=== PATIENT | male | born 1940 | race Caucasian/White ===

== ENCOUNTER 2016-12-16 09:18 | Day surgery (SDC) | payer MEDICARE, BC ==
[~2016-12-16] VITALS: Ht 172.7 cm
--- NOTE | 2016-12-18 08:18 | OR ---
ADMIT: 12/16/2016 RM/LOC: [facility] MR#: [id number] [address] RAFAEL MUNIZ [address] [place] [address] Operative/Delivery Room Report SEX: M AGE: 76 : 1940 SURGERY DATE: 12/16/2016 SURGEON: Therese Hsieh MD FITNESS CONSULTANT: None. PREOPERATIVE DIAGNOSES: 1. Lumbar spondylosis. 2. Lumbago. 3. Failed back surgery syndrome. POSTOPERATIVE DIAGNOSES: 1. Lumbar spondylosis. 2. Lumbago. 3. Failed back surgery syndrome. PROCEDURE PERFORMED: Bilateral lumbar medial branch block at L3, L4, L5, and S1 levels. INDICATION FOR THE PROCEDURE: The patient is a pleasant gentleman with history of chronic low back pain secondary to above mentioned diagnoses, come here for planned lumbar medial branch block. ANESTHESIA: Local without sedation. ESTIMATED BLOOD LOSS: Zero. COMPLICATIONS: None immediately evident. DESCRIPTION OF THE PROCEDURE: After the patient was seen in the preoperative area, vital signs were taken. Prior to the procedure, the risks, benefits, and alternative therapies were discussed at length. The patient's consent was obtained and updated. The patient was taken to the fluoroscopy suite and placed on the fluoroscopy table in a prone position. Pressure points were padded to comfort. Monitors were applied and a timeout performed. The lumbosacral area was prepped and draped sterilely using ChloraPrep. C-arm fluoroscopy was then brought in to identify the junction of the pedicular and transverse process. Then lidocaine 1% was applied; approximately 1 mL was used to anesthetize the skin and underlying subcutaneous tissue at bilateral L3, L4, L5 and S1 levels. At each level, a 3.5 inch 22-gauge spinal needle was used. The needle was then advanced to make contact with the superior articular facet at each level, and then needle was placed between the junction ADMIT: 12/16/2016 RM/LOC: [facility] MR#: [id number] [address] RAFAEL MUNIZ [address] [place] [address] Operative/Delivery Room Report SEX: M AGE: 76 : 1940 of the superior articular facet and the transfer process. Then the patient received 0.5 mL of 0.25% Marcaine with approximately 40 mg of Depo-Medrol at each level. The patient had reproduction of typical pain at each level. Then we moved on to the left side; we did the same procedure. The patient tolerated the procedure well. The patient was brought to the PACU where he recovered nicely without any complication. PLAN: The patient was examined after 20 minutes and had 40% reduction of pain. Range of motion, mainly extension, went from 10 degrees of extension to 20 degrees of extension. Discharge instructions were given. Followup as scheduled. The patient was discharged with a cryogenic transport driver. Therese Hsieh MD/ allison JOB #: [id number] CC: Therese Hsieh MD, Attending Physician Jaspreet Aguillon MD, Family Physician
== END 2016-12-16 10:47 | disposition home or self-care (01) ==
LOC: SSS 09:18
PROC: 3E0T3BZ Introduction of Anesthetic Agent into Peripheral Nerves and Plexi, Percutaneous Approach (ICD-10-PCS; principal; 2016-12-16)
PROC: 3E0T33Z Introduction of Anti-inflammatory into Peripheral Nerves and Plexi, Percutaneous Approach (ICD-10-PCS; principal; 2016-12-16)
PROC: BR16YZZ Fluoroscopy of Lumbar Facet Joint(s) using Other Contrast (ICD-10-PCS; principal; 2016-12-16)
DX: G89.29 Other chronic pain (principal); M47.816 Spondylosis without myelopathy or radiculopathy, lumbar region; M51.37 Other intervertebral disc degeneration, lumbosacral region; M48.06 Spinal stenosis, lumbar region; M96.1 Postlaminectomy syndrome, not elsewhere classified; G56.00 Carpal tunnel syndrome, unspecified upper limb; M79.1 Myalgia; Z79.899 Other long term (current) drug therapy; Z79.82 Long term (current) use of aspirin; I10 Essential (primary) hypertension; I25.10 Atherosclerotic heart disease of native coronary artery without angina pectoris; E11.9 Type 2 diabetes mellitus without complications; Z90.49 Acquired absence of other specified parts of digestive tract; Z88.8 Allergy status to other drugs, medicaments and biological substances; Z88.6 Allergy status to analgesic agent; Z98.890 Other specified postprocedural states

== ENCOUNTER 2017-01-06 09:47 | Day surgery (SDC) | payer MEDICARE, BC ==
[~2017-01-06] VITALS: Ht 172.7 cm
--- NOTE | 2017-01-08 08:34 | OR ---
ADMIT: 01/06/2017 RM/LOC: [facility] MR#: [id number] [address] RAFAEL MUNIZ [address] [place], [place] [address] Operative/Delivery Room Report SEX: M AGE: 76 : 1940 SURGERY DATE: 01/06/2017 SURGEON: Therese Hsieh MD COMMISSIONING SPECIALIST: None. PREPROCEDURE DIAGNOSES: 1. Lumbar spondylosis. 2. Lumbago. POSTPROCEDURE DIAGNOSES: 1. Lumbar spondylosis. 2. Lumbago. PROCEDURE PERFORMED: Right L3, L4, L5, and S1 radiofrequency thermocoagulation. INDICATIONS FOR PROCEDURE: The patient is a pleasant gentleman with history of chronic low back pain secondary to above mentioned diagnoses, comes here for planned right-sided lumbar radiofrequency thermocoagulation. ANESTHESIA: Local without sedation. ESTIMATED BLOOD LOSS: Zero. COMPLICATIONS: None immediately evident. DESCRIPTION OF THE PROCEDURE: After the patient was seen in the preoperative area, vitals signs were taken. Prior to the procedure, the risks, benefits, and alternative therapies were discussed at length. Patient consent was obtained and updated. The patient was taken to the fluoroscopy suite and placed on the fluoroscopy table in the prone position. Pressure points were padded to comfort, monitors applied, and a timeout performed. ADMIT: 01/06/2017 RM/LOC: [facility] MR#: [id number] [address] JESSICA MUNIZMATIAS Gagnon [address] [place], [place] [id number] Operative/Delivery Room Report SEX: M AGE: 76 : 1940 Fluoroscopy was brought in to identify the transverse process of the right- sided L3, L4, L5, and S1. To anesthetize the skin, a spinal cannula was placed near the junction of pedicle and transverse process. Once we obtained appropriate parameters for sensory motor testing, we proceeded with radiofrequency thermocoagulation at each level, which consisted of 80 degrees for 90 seconds. The patient tolerated the procedure well. The patient did not feel any stimulation below his knees. The patient was discharged to post anesthesia care without any immediate complications. PLAN: Discharge instructions were given, followup scheduled. The patient was discharged home with a hazmat tanker driver. Therese Hsieh MD/ allison JOB #: [id number] CC: Therese Hsieh MD, Attending Physician Jaspreet Aguillon MD, Family Physician
== END 2017-01-06 11:30 | disposition home or self-care (01) ==
LOC: SSS 09:47
PROC: 3E0T3TZ Introduction of Destructive Agent into Peripheral Nerves and Plexi, Percutaneous Approach (ICD-10-PCS; principal; 2017-01-06)
PROC: BR16YZZ Fluoroscopy of Lumbar Facet Joint(s) using Other Contrast (ICD-10-PCS; principal; 2017-01-06)
DX: G89.29 Other chronic pain (principal); M47.816 Spondylosis without myelopathy or radiculopathy, lumbar region; G56.00 Carpal tunnel syndrome, unspecified upper limb; M47.812 Spondylosis without myelopathy or radiculopathy, cervical region; M48.06 Spinal stenosis, lumbar region; E11.9 Type 2 diabetes mellitus without complications; I10 Essential (primary) hypertension; M79.1 Myalgia; M51.37 Other intervertebral disc degeneration, lumbosacral region; Z88.8 Allergy status to other drugs, medicaments and biological substances; Z88.6 Allergy status to analgesic agent; Z90.49 Acquired absence of other specified parts of digestive tract; Z98.890 Other specified postprocedural states; Z79.899 Other long term (current) drug therapy

== ENCOUNTER 2017-02-10 10:05 | Day surgery (SDC) | payer MEDICARE, BC ==
[~2017-02-10] VITALS: Ht 172.7 cm; Wt 90.0 kg
--- NOTE | 2017-02-12 08:06 | OR ---
ADMIT: 02/10/2017 RM/LOC: [facility] MR#: [id number] [address] RAFAEL MUNIZ [address] [place], [place] [id number] Operative/Delivery Room Report SEX: M AGE: 76 : 1940 SURGERY DATE: 02/10/2017 SURGEON: Therese Hsieh MD TORPEDO WORKER: None. PREPROCEDURE DIAGNOSES: 1. Lumbar spondylosis. 2. Lumbago. POSTPROCEDURE DIAGNOSES: 1. Lumbar spondylosis. 2. Lumbago. PROCEDURE PERFORMED: Left L3, L4, L5, and S1 medial branch radiofrequency thermocoagulation. INDICATIONS FOR PROCEDURE: The patient is a pleasant gentleman with history of chronic low back pain secondary to above-mentioned diagnoses, comes here for planned left-sided lumbar radiofrequency ablation. ANESTHESIA: Local without sedation. ESTIMATED BLOOD LOSS: Zero. COMPLICATIONS: None immediately evident. DESCRIPTION OF THE PROCEDURE: After the patient was seen in the preoperative area, vitals signs were taken. Prior to the procedure, the risks, benefits, and alternative therapies were discussed at length. Patient consent was obtained and updated. The patient was taken to the fluoroscopy suite and placed on the fluoroscopy table in the prone position. Pressure points were padded to comfort, monitors applied, and a timeout performed. ADMIT: 02/10/2017 RM/LOC: [facility] MR#: [id number] [address] FLAVIO RAFAEL Gagnon [address] [place], [place] [id number] Operative/Delivery Room Report SEX: M AGE: 76 : 1940 Fluoroscopy was brought in to identify the transverse process of the left- sided L3, L4, L5, and S1. To anesthetize the skin, a spinal cannula was placed near the junction of pedicle and transverse process. Once we obtained appropriate parameters for sensory motor testing, we proceeded with radiofrequency thermocoagulation at each level, which consisted of 80 degrees for 90 seconds. The patient tolerated the procedure well. The patient did not feel any stimulation below his knees. The patient was discharged to post anesthesia care without any immediate complications. PLAN: Discharge instructions were given, followup scheduled. The patient was discharged home with a cdl company driver. Therese Hsieh MD/ allison JOB #: [id number] CC: Therese Hsieh MD, Attending Physician Jaspreet Aguillon MD, Family Physician
== END 2017-02-10 12:34 | disposition home or self-care (01) ==
LOC: SSS 10:05
PROC: 3E0T3TZ Introduction of Destructive Agent into Peripheral Nerves and Plexi, Percutaneous Approach (ICD-10-PCS; principal; 2017-02-10)
PROC: BR16YZZ Fluoroscopy of Lumbar Facet Joint(s) using Other Contrast (ICD-10-PCS; principal; 2017-02-10)
DX: G89.29 Other chronic pain (principal); M47.816 Spondylosis without myelopathy or radiculopathy, lumbar region; G56.00 Carpal tunnel syndrome, unspecified upper limb; M47.812 Spondylosis without myelopathy or radiculopathy, cervical region; M48.06 Spinal stenosis, lumbar region; M79.1 Myalgia; M19.90 Unspecified osteoarthritis, unspecified site; Z88.8 Allergy status to other drugs, medicaments and biological substances; Z88.6 Allergy status to analgesic agent; Z90.49 Acquired absence of other specified parts of digestive tract; Z98.890 Other specified postprocedural states; Z79.82 Long term (current) use of aspirin; Z88.2 Allergy status to sulfonamides

== ENCOUNTER → 2017-02-17 | Outpatient (CLI) | payer MEDICARE, BC | END | disposition home or self-care (01) | LOC: PTH.S 09:00 → RAD.S 09:30 | DX: C18.8 Malignant neoplasm of overlapping sites of colon (principal); C18.0 Malignant neoplasm of cecum; R92.8 Other abnormal and inconclusive findings on diagnostic imaging of breast; M47.894 Other spondylosis, thoracic region; I10 Essential (primary) hypertension ==

== ENCOUNTER 2017-03-03 10:05 | Day surgery (SDC) | payer MEDICARE, BC ==
[~2017-03-03] VITALS: Ht 172.7 cm
--- NOTE | 2017-03-04 08:16 | OR ---
ADMIT: 03/03/2017 RM/LOC: [facility] MR#: [id number] [address] RAFAEL MUNIZ [address] [place] [address] Operative/Delivery Room Report SEX: M AGE: 76 : 1940 SURGERY DATE: 03/03/2017 SURGEON: Therese Hsieh MD PREOPERATIVE DIAGNOSES: 1. Bilateral hip pain. 2. Bilateral greater trochanteric bursitis. POSTOPERATIVE DIAGNOSES: 1. Bilateral hip pain. 2. Bilateral greater trochanteric bursitis. PROCEDURE PERFORMED: Bilateral greater trochanteric bursa injection. INDICATIONS FOR PROCEDURE: The patient is a pleasant gentleman with history of bilateral chronic hip pain secondary to above-mentioned diagnoses who comes here for planned bilateral greater trochanteric bursa injection. DESCRIPTION OF PROCEDURE: After the patient was seen in the preoperative area, vitals signs were taken. Prior to the procedure, the risks, benefits, and alternative therapies were discussed at length. Patient consent was obtained and updated. The patient was taken to the fluoroscopy suite and placed on the fluoroscopy table in the prone position. Pressure points were padded to comfort, monitors applied, and a timeout performed. Fluoroscopy was brought in. The patient was sterilely prepped and draped in the usual manner with ChloraPrep solution, and 1% lidocaine was used to anesthetize the skin at the appropriate needle entry site. A 3.5-inch 22- gauge curved-tip needle was manipulated from the right side using AP fluoroscopic view of right trochanteric area. Osteal contact of needle was obtained at the greater trochanter and slightly withdrawn. Injection of 2 mL of Isovue 300 showed delineation of the right greater trochanteric bursa. The needle then injected a 5 mL solution consisting of 0.25% bupivacaine and 40 mg Depo-Medrol. The needle was then withdrawn and a band-aid applied. Vital signs remained stable. The patient tolerated the procedure well. Then, we moved onto the left side and repeated the same procedure. PLAN: The patient was examined after 20 minutes, the patient had 80% reduction of pain. Discharge instructions were given, followup scheduled. The patient was discharged home with a warehouse delivery driver. Therese Hsieh MD/ allison JOB #: [id number] CC: Therese Hsieh MD, Attending Physician ADMIT: 03/03/2017 RM/LOC: [facility] MR#: [id number] [address] RAFAEL MUNIZ [address] [place] [address] Operative/Delivery Room Report SEX: M AGE: 76 : 1940 Jaspreet Aguillon MD, Family Physician
== END 2017-03-03 11:35 | disposition home or self-care (01) ==
LOC: SSS 10:05
PROC: 3E0U33Z Introduction of Anti-inflammatory into Joints, Percutaneous Approach (ICD-10-PCS; principal; 2017-03-03)
PROC: 3E0U3BZ Introduction of Anesthetic Agent into Joints, Percutaneous Approach (ICD-10-PCS; principal; 2017-03-03)
DX: G89.29 Other chronic pain (principal); M70.61 Trochanteric bursitis, right hip; M70.62 Trochanteric bursitis, left hip; Z79.899 Other long term (current) drug therapy; Z79.891 Long term (current) use of opiate analgesic; Z88.2 Allergy status to sulfonamides

== ENCOUNTER 2017-04-01 06:58 | Day surgery (SDC) | payer MEDICARE, BC ==
[~2017-04-01] VITALS: Ht 172.7 cm
--- NOTE | 2017-04-02 08:23 | OR ---
ADMIT: 04/01/2017 RM/LOC: [facility] MR#: [id number] [address] COSTARAFAEL OSBORNE [address] [place] [address] Operative/Delivery Room Report SEX: M AGE: 77 : 1940 SURGERY DATE: 04/01/2017 SURGEON: Therese Hsieh MD FACULTY SUPPORT COORDINATOR: None. PREOPERATIVE DIAGNOSES: 1. Right knee arthritis. 2. Right knee pain. POSTOPERATIVE DIAGNOSES: 1. Right knee arthritis. 2. Right knee pain. NAME OF PROCEDURE: Right knee injection. INDICATION FOR PROCEDURE: The patient is a pleasant gentleman with history of chronic knee pain secondary to arthritis. Comes here for planned right knee injection. ANESTHESIA: Local without sedation. ESTIMATED BLOOD LOSS: Zero. COMPLICATIONS: None immediately evident. DESCRIPTION OF THE PROCEDURE: After the patient was seen in the preoperative area, vitals signs were taken. Prior to the procedure, the risks, benefits, and alternative therapies were discussed at length. Patient consent was obtained and updated. The patient was taken to the fluoroscopy suite and placed on the fluoroscopy table in a supine position. Pressure points were padded to comfort, monitors applied, and a timeout performed. C-arm was brought in to identify the right knee joint. Lidocaine plain 1%, approximately 1 mL was used to anesthetize the skin and underlying ADMIT: 04/01/2017 RM/LOC: [facility] MR#: [id number] [id number] RAFAEL MUNIZ [address] [place] [address] Operative/Delivery Room Report SEX: M AGE: 77 : 1940 subcutaneous tissue. A 3.5-inch 22-gauge curved-tip spinal needle was advanced through the anesthetized skin and placed into the right knee joint space. Isovue-300 was injected into joint and showed good spread into the knee joint. After the correct placement was confirmed, a 5 mL solution consisting of 0.25% Marcaine and 80 mg of Depo-Medrol were injected. The patient tolerated the procedure well without any complications. The patient was then brought to the PACU where the patient recovered nicely. PLAN: The patient was examined after the conclusion of the procedure and had 80 % reduction of pain. Discharge instructions were given and followup scheduled. The patient was discharged home with a personal driver. Therese Hsieh MD/ allison JOB #: [id number] CC: Therese Hsieh MD, Attending Physician Jaspreet Aguillon MD, Family Physician
== END 2017-04-01 08:26 | disposition home or self-care (01) ==
LOC: SSS 06:58
PROC: 3E0U3BZ Introduction of Anesthetic Agent into Joints, Percutaneous Approach (ICD-10-PCS; principal; 2017-04-01)
PROC: 3E0U33Z Introduction of Anti-inflammatory into Joints, Percutaneous Approach (ICD-10-PCS; principal; 2017-04-01)
DX: G89.29 Other chronic pain (principal); M17.11 Unilateral primary osteoarthritis, right knee; M47.812 Spondylosis without myelopathy or radiculopathy, cervical region; M47.816 Spondylosis without myelopathy or radiculopathy, lumbar region; M48.06 Spinal stenosis, lumbar region; M51.37 Other intervertebral disc degeneration, lumbosacral region; Z88.6 Allergy status to analgesic agent; Z88.8 Allergy status to other drugs, medicaments and biological substances; Z90.49 Acquired absence of other specified parts of digestive tract; Z98.890 Other specified postprocedural states